=== PATIENT | male | born 1990 | race Caucasian/White ===

== ENCOUNTER 2018-06-22 06:23 | Emergency (ER) | payer SELFPAY ==
[~2018-06-22] VITALS: Ht 177.8 cm; Wt 68.2 kg
[2018-06-22 06:29] VITALS: Ht 177.8 cm; Wt 68.2 kg
[2018-06-22] MEDS ORDERED: ZOLOFT100 MG PO (06:33)
[2018-06-22 06:55] LABS: BASOPHILS 0.8 % (0-2); EOSINOPHILS 4.1 % (0-7); HEMATOCRIT 43.1 % (42.0-54.0); IMMATURE GRANULOCYTES 0.2 % (0-5); LYMPHOCYTES 38.3 % (15-50); MCHC 34.8 g/dL (31.0-37.0); MCV 94.9 fL (80.0-100.0); MEAN PLATELET VOLUME 9.7 fL (7.4-10.4); MONOCYTES 7.8 % (2-11); NEUTROPHILS 48.8 % (40-80); PLATELET COUNT 198 10x3/uL (130-400); RBC 4.54 10x6/uL (4.20-6.10); RDW 12.5 % (11.5-14.5); WBC 6.1 10x3/uL (4.8-10.8)
[2018-06-22 06:56] LABS: UDS - AMPHET NEGATIVE QUAL (NEGATIVE); UDS - BARB NEGATIVE QUAL (NEGATIVE); UDS - BENZO NEGATIVE QUAL (NEGATIVE); UDS - COCAINE NEGATIVE QUAL (NEGATIVE); UDS - OPIATE NEGATIVE QUAL (NEGATIVE); UDS - PCP NEGATIVE QUAL (NEGATIVE); UDS - THC NEGATIVE QUAL (NEGATIVE)
[2018-06-22 07:02] LABS: ALBUMIN 3.6 g/dL (3.4-5.0); ALKALINE PHOSPHATASE 53 U/L (46-116); ALT (SGPT) 28 U/L (10-68); BILIRUBIN - TOTAL 0.57 mg/dL (0.2-1.3); CALC OSMOLALITY 281 mosm/kg (275-300); CALCIUM 7.5 mg/dL (8.5-10.1); CARBON DIOXIDE 28.7 mmol/L (21.0-32.0); CHLORIDE - SERUM 105 mmol/L (98-107); CREATININE - SERUM 0.8 mg/dL (0.6-1.3); GLUCOSE 85 mg/dL (74-106); POTASSIUM - SERUM 3.6 mmol/L (3.5-5.1); PROTEIN - SERUM 6.7 g/dL (6.4-8.2); SODIUM 142 mmol/L (136-145); UREA NITROGEN 12 mg/dL (7-18); eGFR NON AFRICAN AMERICAN > 90 mL/min (90-120)
[2018-06-22 07:11] LABS: THYROID STIMULATING HORMONE 1.85 uIU/mL (0.36-3.74)
[2018-06-23 00:10] VITALS: BP 132/89
== END 2018-06-23 00:50 ==
LOC: D.ER 06:23
PROVIDERS: Family Medicine
DX: R45.851 Suicidal ideations (principal); F32.9 Major depressive disorder, single episode, unspecified; F17.200 Nicotine dependence, unspecified, uncomplicated